=== PATIENT | male | born 1945 | race Two or more races ===

== ENCOUNTER 2018-08-18 04:00 | Day surgery (SDC) | payer OTHER ==
[~2018-08-18 04:00] MED LIST: ATIVAN2 M1 PO; BUPROPION XL300 MG PO; NORVASC5 MG PO; SYNTHROID50 MCG PO; ZYPREXA10 MG PO
== END 2018-08-18 12:10 | disposition home or self-care (01) ==
LOC: CIR.AMB 04:00
DX: K40.90 Unilateral inguinal hernia, without obstruction or gangrene, not specified as recurrent (principal)

== ENCOUNTER 2024-11-11 19:28 | Emergency (ER) | payer OTHER ==
[~2024-11-11] VITALS: Ht 162.6 cm; Wt 68.0 kg
[2024-11-11] MEDS ORDERED: COZAAR100 MG PO (19:59)
[2024-11-11] MEDS ORDERED: CLONAZEPAM0.5 M1 PO (19:59)
[2024-11-11] MEDS ORDERED: MIRTAZAPINE15 M1 (20:00)
[2024-11-11] MEDS ORDERED: OMEPRAZOLE MAGN20 MG (20:00)
[2024-11-11] MEDS ORDERED: SERTRALINE HCL50 MG PO (20:00)
[2024-11-11] MEDS ORDERED: NASAL MIST126 ML (20:01)
[2024-11-11] MEDS ORDERED: SIMVASTATIN5 MG (20:01)
[2024-11-11] MEDS ORDERED: NORTRIPTYLINE H10 MG (20:01)
[2024-11-11] MEDS ORDERED: 0.9 % SODIUM CHLORIDE 1,000 ML IV ONE (22:00)
[2024-11-11 22:41] LABS: ABG PH 7.478 (7.35-7.45); ABG PO2 84.5 mmHg (80-100); ABG pCO2 41.1 mmHg (35-45); BASE EXCESS 5.7 mmol/l; BICARBONATE 29.7 mmol/l (23-25); SaO2 97.2 %
[2024-11-11 22:51] LABS: allen test SATISFACTORY; mode ROOM AIR; o2 21 %; puncture site RADIAL LEFT
[2024-11-11 23:21] LABS: HEMATOCRIT 34.3 % (39.0-48.0); HEMOGLOBIN 11.8 g/dL (13-16.00); MEAN CELL VOLUME 92.7 fL (80.0-100.00); MEAN CORPUSCULAR HGB CONC 34.5 g/dl (32.0-36.0); PLATELET COUNT 243 K/uL (150-450); RED CELL DISTRIBUTION WIDTH 14.2 % (11.5-14.5)
[2024-11-11 23:51] LABS: ALBUMIN 3.6 gm/dL (3.4-5.0); BILIRUBIN TOTAL 0.58 mg/dL (0.3-1.2); CALCIUM 9.2 mg/dL (8.5-10.1); CREATININE SERUM 1.05 mg/dL (0.70-1.30); GFR 67.96; GLOBULINA 3.7 G/DL (2.4-3.5); POTASSIUM 3.04 mEq/L (3.5-5.1); TOTAL PROTEIN 7.3 gm/dL (6.4-8.2)
[2024-11-12 10:18] VITALS: BP 151/81; O2SAT 95
== END 2024-11-12 17:38 | disposition home or self-care (01) ==
LOC: ER 19:28
PROVIDERS: General Practice
DX: R06.02 Shortness of breath (principal); R53.1 Weakness; E03.8 Other specified hypothyroidism; Z88.0 Allergy status to penicillin
CPT/HCPCS: 36415; 71045; 82803; 93041; 96365; 96366; 99283; J7030